=== PATIENT | female | born 1995 | race Caucasian/White ===

== ENCOUNTER 2018-10-24 07:18 | Inpatient (IN) ==
[2018-10-24] MEDS ORDERED: OXYTOCIN 30 UNITS/500 ML BAG IV PRN ×3 (08:32→19:37)
[2018-10-24] MEDS ORDERED: LACTATED RINGER'S 1,000 ML IV PRN ×2 (08:32→16:40)
--- NOTE | 2018-10-24 08:38 | History & Physical Report ---
Date of Service October 24, 2018 Assessment & Plan (1) Post-dates : 23 yo at 41 wks, scheduled IOL VSS Afebrile, GBS negative Cervix unfavorable Plan: admit, monitor, IVF, Cervidil for cervical ripening History of Present Illness Chief Complaint: Induction of labor Primary Care Provider: Josué Moseley DO Patient is a 23 yo at 41 wks, being admitted for IOL for postdates No complaints No ctxs/ LOF/VB +FM Her has been uncomplicated h/o mild asthma/ seasonal Migraines IBS GERD h/o 2 SAB's, on 81 mg Aspirin Allergies Allergy/AdvReac Type Severity Reaction Status Date / Time lactose Allergy Gastrointestinal Verified 10/24/18 08:27 Upset Home Medications Home Medications Medication Instructions Recorded Confirmed Type aspirin [Aspirin Childrens] 81 mg PO DAILY 07/28/18 10/24/18 History vit no.[id number] 1 tab PO DAILY 07/28/18 10/24/18 History [ Vitamin] Patient History Medical History Gastroparesis (Chronic) Asthma allergy induced Surgical History [place] teeth extracted (Resolved) H/O dilation and curettage Family History Other FHx: cancer FHx: heart disease FHx: hypertension Social History Preferred Language: Indonesian Communication Ability: Effective 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 Beliefs That Will Affect Care: None marital status: Current Living Situation: Spouse and Family Feels Safe at Home: Yes Safety Concerns: Feels Safe At This Time Smoking Status: Never smoker Hx Alcohol Use: No Hx Substance Use: No [employer] History No h/o STD's, no GC/ Chlamydia/ HSV Review of Systems All systems reviewed & are unremarkable except as noted in HPI & below Physical Exam Vital Signs (Past 24 Hours): Last Vital Signs Pulse 110 H 10/24/18 07:50 BP 137/81 10/24/18 07:50 Gastrointestinal (Abdomen): Abd: soft, NT, Gravid Monitoring External Monitor 140's with decreased variability, had acceleration and moderate variability after VE
[2018-10-24 08:51] LABS: Hemoglobin 11.5 g/dL (12.0-16.0); Mean Corpuscular Volume 92.4 fL (80-100); Mean Platelet Volume 9.5 fL (7.4-10.4); Platelet Count 374 K/uL (130-400); RDW Standard Deviation 46.8 fL (36.4-46.3); Red Blood Count 3.68 M/uL (4.2-5.4); White Blood Count 15.38 K/uL (4.8-10.8)
[2018-10-24 08:56] LABS: Mean Corpuscular Hgb Conc 33.8 g/dL (32-36)
[2018-10-24] MEDS ORDERED: DINOPROSTONE 10 MG INSERT PV ONE ×2 (09:00→21:01)
[2018-10-24] MEDS: LACTATED RINGER'S 1,000 ML IV SCH ×2 (09:04→15:51)
[2018-10-24] MEDS ORDERED: BUTORPHANOL TARTRATE 2 MG/ML VIAL IV PRN (13:20)
[2018-10-24] MEDS ORDERED: BUTORPHANOL TARTRATE 2 MG/ML VIAL ONE (13:22)
[2018-10-24] MEDS ORDERED: BUPIVACAINE 0.25% 30 ML VIAL ONE (14:52)
[2018-10-24] MEDS ORDERED: ePHEDrine sulfate 50 MG/ML AMP ONE (14:53)
[2018-10-24] MEDS ORDERED: fentaNYL citrate 100 MCG/2 ML VIAL ONE (14:53)
[2018-10-24] MEDS ORDERED: fentaNYL 2MCG/ML ROPIV 1.25MG/ML 100 ML BAG EPI ONE (14:53)
--- NOTE | 2018-10-24 14:57 | Obstetrical Progress Note ---
Date of Service October 24, 2018 Subjective Patient is very painful She received Stadol but did not help for her pain Now No LOF/VB +FM VSS Afebrile VE: 2cm/ 80%/ -3, cervidil is in FHR Categ I [place]: ctxs q 2-7 min Plan epidural for pain Continue to monitor closely Physical Exam Vital Signs (Past 24 Hours): Last Vital Signs Temp 36.9 C 10/24/18 12:05 Pulse 116 H 10/24/18 12:07 Resp 16 10/24/18 12:05 BP 115/66 10/24/18 12:07
--- NOTE | 2018-10-24 16:40 | Obstetrical Progress Note ---
Date of Service October 24, 2018 Subjective Patient is reevalauated She had epidural for pain and feels comfortable now She had low BP's and had FHR decelerations after few ctxs and recovered when BP was normalized SROM at 1615, light meconium? per PAOLA Wiley who removed cervidil then VE: 4/ 70%/ -2, bulging bag, AROM'ed, clear fluid FHR 140-150's no decels Continue to monitor closely Augment with pitocin as needed Physical Exam Vital Signs (Past 24 Hours): Last Vital Signs Temp 36.8 C 10/24/18 15:49 Pulse 115 H 10/24/18 16:32 Resp 18 10/24/18 16:00 BP 105/59 L 10/24/18 16:32 Pulse Ox 98 10/24/18 16:32
[2018-10-24] MEDS ORDERED: CEFAZOLIN 2000MG 2,000 MG/15 ML SYR IV STA (19:09)
[2018-10-24] MEDS ORDERED: ONDANSETRON INJ 2 MG/ML 2 ML VIAL IV PRN (19:31)
[2018-10-24] MEDS ORDERED: ONDANSETRON INJ 2 MG/ML 2 ML VIAL ONE (19:35)
[2018-10-24] MEDS ORDERED: ACETAMINOPHEN 325 MG TAB PO PRN (19:37)
[2018-10-24] MEDS ORDERED: BENZOCAINE 20% AER SPR 82.5 GM CAN EXT PRN (19:37)
[2018-10-24] MEDS ORDERED: SUPERCREAM 0.870% 15 GM JAR EXT PRN (19:37)
[2018-10-24] MEDS ORDERED: BISACODYL 10 MG SUPP PR PRN (19:37)
[2018-10-24] MEDS ORDERED: HYDROCORTISONE ACETATE 25 MG SUPP PR PRN (19:37)
[2018-10-24] MEDS ORDERED: DIPHTHERIA/TETANUS/PERTUSSIS 0.5 ML SYR/VIAL IM ONE (19:37)
[2018-10-24] MEDS ORDERED: LACTATED RINGER'S 1,000 ML IV SCH (19:45)
[2018-10-24] MEDS ORDERED: IBUPROFEN 600 MG TAB PO ONE (19:50)
[2018-10-24] MEDS: IBUPROFEN 600 MG TAB PO PRN (19:52)
--- NOTE | 2018-10-24 21:04 | Obstetrical Progress Note ---
Date of Service October 24, 2018 Subjective Patient is reevaluated She slept after she received Stadol for pain Helped for pain VE: 2/ thick / -5, cervidil is removed Bed side US: Vertex FHR categ I, decreased variability after Stadol Plan give her dinner and then 2nd cervidil for cervical ripening Continue to monitor Physical Exam Vital Signs (Past 24 Hours): Last Vital Signs Temp 37.1 C 10/24/18 17:37 Pulse 118 H 10/24/18 20:47 Resp 20 10/24/18 20:32 BP 122/77 10/24/18 20:47 Pulse Ox 96 10/24/18 19:22
--- NOTE | 2018-10-24 21:27 | Anesthesia Procedure Note ---
Date of Service October 24, 2018 Anesthesia Post Epidural Note Vital Signs Vital Signs: Temp Pulse Resp BP Pulse Ox 37.1 C 118 H 20 119/72 96 10/24/18 17:37 10/24/18 21:17 10/24/18 20:32 10/24/18 21:17 10/24/18 19:22 Pain Intensity Episiotomy/Laceration: Pain Intensity: 1 Notes Mental Status: alert / awake / arousable and participated in evaluation Nausea / Vomiting: adequately controlled Pain: adequately controlled Airway Patency, RR, SpO2: stable & adequate BP & HR: stable & adequate Hydration State: stable & adequate Neuraxial Anesthesia: was administered and sensory block is resolving Anesthetic Complications: no major complications apparent and Pt Satisfied with anesthetic care Epidural: Removed without complications and With tip intact
[2018-10-24] MEDS: OXYCODONE/ACETAMINOPHEN 5mg/325mg TAB PO PRN (22:07)
[2018-10-24] MEDS: DOCUSATE SODIUM 100 MG CAP PO SCH (23:00)
[2018-10-25] MEDS: IBUPROFEN 600 MG TAB PO PRN ×5 (01:56→20:29)
[2018-10-25] MEDS: OXYCODONE/ACETAMINOPHEN 5mg/325mg TAB PO PRN ×2 (04:10→18:31)
[2018-10-25 06:13] LABS: Hematocrit (blood only) 29.7 % (37-47); Hemoglobin 9.8 g/dL (12.0-16.0); Mean Corpuscular Volume 94.9 fL (80-100); Mean Platelet Volume 9.4 fL (7.4-10.4); Platelet Count 360 K/uL (130-400); RDW Coefficient of Variation 14.3 % (11.5-14.5); RDW Standard Deviation 49.2 fL (36.4-46.3); Red Blood Count 3.13 M/uL (4.2-5.4); White Blood Count 22.07 K/uL (4.8-10.8)
--- NOTE | 2018-10-25 07:34 | Obstetrical Progress Note ---
Date of Service October 25, 2018 Physical Exam Vital Signs (Past 24 Hours): Last Vital Signs Temp 37.0 C 10/25/18 03:50 Pulse 104 H 10/25/18 03:50 Resp 16 10/25/18 03:50 BP 107/68 10/25/18 03:50 Pulse Ox 94 10/25/18 03:50 Physical Exam: abdomen soft and non tender vaginal bleeding scant to moderate no calf tenderness ambulating well
[2018-10-25] MEDS: DOCUSATE SODIUM 100 MG CAP PO SCH ×2 (07:41→20:30)
[2018-10-25] MEDS: PRENATAL VITAMIN 1 TAB PO SCH (07:41)
[2018-10-25] MEDS: FERROUS SULFATE 325 MG TAB PO SCH (07:41)
[2018-10-25] MEDS ORDERED: BISACODYL 5 MG TABEC PO SCH (20:00)
[2018-10-26] MEDS: OXYCODONE/ACETAMINOPHEN 5mg/325mg TAB PO PRN (00:14)
[2018-10-26] MEDS: IBUPROFEN 600 MG TAB PO PRN (05:05)
[2018-10-26 07:47] LABS: Hematocrit (blood only) 29.4 % (37-47); Hemoglobin 9.7 g/dL (12.0-16.0)
[2018-10-26] MEDS: DOCUSATE SODIUM 100 MG CAP PO SCH (07:59)
[2018-10-26] MEDS: PRENATAL VITAMIN 1 TAB PO SCH (07:59)
[2018-10-26] MEDS: FERROUS SULFATE 325 MG TAB PO SCH (07:59)
--- NOTE | 2018-10-26 11:37 | Obstetrical Progress Note ---
Date of Service October 26, 2018 Physical Exam Vital Signs (Past 24 Hours): Last Vital Signs Temp 36.9 C 10/26/18 08:05 Pulse 91 H 10/26/18 08:05 Resp 18 10/26/18 08:05 BP 120/84 10/26/18 08:05 Pulse Ox 97 10/26/18 08:05 Physical Exam: abdomen soft and non tender vaginal bleeding scant to moderate no calf tenderness ambulating well
--- NOTE | 2018-10-27 07:58 | Delivery Summary ---
DATE OF OPERATION: 10/24/2018 DETAILS OF DELIVERY: The patient was found to be fully dilated and desired to push. She pushed for about 24 minutes and delivered the head without difficulty. Shoulders were delivered with minimal traction. Baby was handed off to the mother where mouth and nose were suctioned. Cord was clamped x2 and cut at 1-minute delay and then placenta was found to be in the vagina, delivered spontaneous as intact and complete. Uterus was explored, found to be empty. Lower segment was cleared of all clots and debris and IV pitocin infusion was started. The vagina and perineum were checked for lacerations. There was a partial third-degree laceration in the posterior fourchette. It was confirmed with rectal exam. The patient had good sphincter tone, but some of the external sphincter muscle fibers were visible. So those were held with Allis clamps, brought to the midline, and repaired in an end-to-end fashion with [id number] stitches x2 and then rectal exam was repeated. She still had excellent sphincter tone, no sutures were felt. Gloves were changed. Rest of the vaginal mucosa, perineal body muscles, bulbocavernosus muscles were repaired with 2-0 Vicryl in a running locked fashion and then there was oozing at the end of the repair on the right lower vaginal wall. It was also repaired with [id number] stitches x2. Excellent hemostasis was achieved. Rest of the vagina was intact. Mom and baby tolerated the procedure well. Sponge, lap, and needle count was correct x2. Baby was a viable female , Apgars 8/9. EBL was 200 mL. No complications happened and I was present during whole procedure. I attest to the content of the Intraoperative Record and any orders documented therein. Any exceptions are noted below. MTDD
--- OUTSIDE RECORDS SUMMARY | 2018-11-06 10:39 | External Medical Summary | Continuity of Care Document ---
:1995 Author Name Antonio Holly Address Unavailable Unavailable , Care Team Providers Name Role Phone Unavailable Unavailable Unavailable Matteo Palomares M.D. Unavailable [email or web address] [place] KULKARNI Unavailable [email or web address] Bell Unavailable Unavailable Unavailable Unavailable Unavailable Problems Asthma (493.90) (J45.909) Allergic rhinitis (477.9) (J30.9) Iron deficiency anemia (280.9) (D50.9) Raynauds phenomenon (443.0) (I73.00) Abdominal pain, RLQ (right lower quadrant) (789.03) (R10.31) Depression (311) (F32.9) Chronic constipation (564.00) (K59.09) Bulimia nervosa (307.51) (F50.2) Nausea (787.02) (R11.0) Encounter for contraceptive surveillance (V25.40) (Z30.40) Encounter for initial prescription of contraceptives (V25.02 ) (Z30.019) Acne (706.1) (L70.9) Dysmenorrhea (625.3) (N94.6) Allergies and Adverse Reactions No Known Drug Allergies (Allergy) Medications NuvaRing 0.12-0.015 MG/24HR Vaginal Ring ; INSERT VAGINALLY AND KEEP IN FOR 3 WEEKS AND REMOVE FOR 1 WEEK. SHAD Frausto Start: 23-Nov-2014 Quantity: 1 Refills: 1 Ventolin HFA 108 (90 Base) MCG/ACT Inhal ation Aerosol Solution; INHALE 2 PUFFS Every 4 hours Avni Mendoza Start: 21-Sep-2013 Quantity: 1 Refills: 12 Zofran TABS; TAKE TABLET Avni CR Refills: 0 Procedures History of Oral Surgery Tooth Extraction Status: Completed Immunizations Hepatitis B On: 1996 0:00 Hepatitis B On: 1996 0:00 Polio On: 1996 0:00 DT On: 1996 0:00 Polio On: 1996 0:00 DT On: 1996 0:00 Hepatitis B On: 1996 0:00 DT On: 1996 0:00 Polio On: 16-Feb-1997 0:00 DT On: 16-Feb-1997 0:00 MMR On: 16-Feb-1997 0:00 Polio On: 28-Feb-2001 0:00 DT On: 28-Feb-2001 0:00 MMR On: 28-Feb-2001 0:00 Hepatitis A On: 07-Sep-2008 Tdap (Adacel) On: 07-Sep-2008 Hepatitis A On: 30-Jan-2012 16:20 Lot #: [id number], [employer] Menactra Intramuscular Injectable On: 30-Jan-2012 16:20 Lot #: [id number], [employer] Varicella Comments: Varicella Comments:Had Illness Family History Brother Family history of Depression Status: Active Mother Family history of Eating Disorder Status: Active Family history of Denial Of Any Significant Medical History Status: Active Grandmother Family history of Breast Cancer (V16.3) Status: Active Grandfather Family history of Colon Cancer (V16.0) Status: Active Father Family history of Denial Of Any Significant Medical History Status: Active Social History - Smoking Status Never smoker Plan of Treatment Planned Observations Planned Goals not documented Results No Known Results Results not documented
== END 2018-10-26 12:30 | disposition home or self-care (01) | DRG 768 ==
LOC: 4S1 07:30 → 4S2 21:55

== ENCOUNTER 2020-10-14 01:26 | Inpatient (IN) ==
[2020-10-14] MEDS ORDERED: LACTATED RINGER'S 1,000 ML IV PRN (02:05)
[2020-10-14] MEDS ORDERED: ePHEDrine sulfate 50 MG/ML AMP ONE (02:23)
[2020-10-14] MEDS ORDERED: fentaNYL citrate 100 MCG/2 ML VIAL ONE (02:23)
[2020-10-14] MEDS ORDERED: SODIUM CHLORIDE 0.9% INJ 10 ML VIAL ONE (02:23)
[2020-10-14] MEDS ORDERED: BUPIVACAINE 0.25% 30 ML VIAL ONE (02:23)
[2020-10-14] MEDS ORDERED: fentaNYL 2MCG/ML ROPIVACAINE 1.25MG/ML 100 ML BAG EPI ONE (02:24)
[2020-10-14 02:28] LABS: Hematocrit (blood only) 34.3 % (37-47); Hemoglobin 11.4 g/dL (12.0-16.0); Mean Corpuscular Volume 90.3 fL (80-100); Mean Platelet Volume 9.1 fL (7.4-10.4); Platelet Count 298 K/uL (130-400); RDW Coefficient of Variation 14.1 % (11.5-14.5); RDW Standard Deviation 46.2 fL (36.4-46.3); White Blood Count 19.87 K/uL (4.8-10.8)
--- NOTE | 2020-10-14 02:28 | Obstetrical Progress Note ---
Date of Service October 14, 2020 Assessment & Plan Admission and Anticipated Discharge Date Admission Date: October 14, 2020 Subjective Admit Note 25 F P1 031 at 39.1 weeks admitted in active labor. GBS is negative. covid is negative. FHT Cat 1 with regular contractions. Cervix is 6/100/0. Patient requesting epidural. Will admit and anticipate normal delivery. Results & Data ([facility]) Vital Signs (Past 12 Hours) Vital Signs Temp Pulse Resp BP 10/14/20 02:07 36.8 C 18 10/14/20 01:40 112 H 126/71
--- NOTE | 2020-10-14 02:35 | Anesthesiology Consultation ---
Date of Service October 14, 2020 Assessment & Plan (1) Encounter for pre-operative examination: Chart Review Chart Review: Acceptable Risk for Surgery and Patient NOT seen in Pre Admission Testing Consults Requested none History Height/Weight Height: 5 ft 3 in Weight: 62.142 kg Allergies Allergy/AdvReac Type Severity Reaction Status Date / Time lactose AdvReac Mild Gastrointestinal Verified 10/14/20 02:05 Upset Medications Home Medications Medication Instructions Recorded Confirmed Last Taken aspirin 81 mg PO HS 01/11/20 10/14/20 10/13/20 PNV [id number]-ferrous fumarate-FA 1 tab PO DAILY 10/14/20 10/14/20 10/13/20 [] Past Medical History Medical History Asthma allergy induced Gastroparesis Post-dates Past Family History Family History Other FHx: cancer FHx: heart disease FHx: hypertension Past Surgical History Surgical History H/O dilation and curettage [place] teeth extracted Social History Smoking Status: Never smoker Hx Alcohol Use: No Hx Substance Use: No substance use type: does not use Physical Exam Vital Signs Last Vital Signs Temp 36.8 C 10/14/20 02:07 Pulse 117 H 10/14/20 02:33 Resp 18 10/14/20 02:07 BP 126/71 10/14/20 01:40 Pulse Ox 97 10/14/20 02:33 Testing Laboratory Results 10/14/20 02:20
[2020-10-14 02:49] LABS: Mean Corpuscular Hgb Conc 33.2 g/dL (32-36)
[2020-10-14] MEDS ORDERED: LIDOCAINE HCL 1% 20 ML VIAL ONE (02:58)
[2020-10-14] MEDS: OXYTOCIN 30 UNITS/500 ML BAG IV PRN ×2 (03:02→03:37)
--- NOTE | 2020-10-14 03:15 | Delivery Summary ---
Vaginal Delivery Summary Date of Service October 14, 2020 Vaginal Delivery Summary Delivery Note over intact perineum KARINA with delayed cord clamping and Apgars 8/9 weight pending. Cord blood obtained followed by spontaneous delivery of an intact placenta. No tears. EBL 200 ml. Final sponge and instrument count are correct. Bladder emptied with red rubber cath. Mom and baby stable.
[2020-10-14] MEDS ORDERED: DIPHTHERIA/TETANUS/PERTUSSIS 0.5 ML SYR/VIAL IM ONE (03:21)
[2020-10-14] MEDS ORDERED: ACETAMINOPHEN 325 MG TAB PO PRN (03:21)
[2020-10-14] MEDS ORDERED: IBUPROFEN 600 MG TAB PO ONE (03:21)
[2020-10-14] MEDS ORDERED: BENZOCAINE 20% AER SPR 82.5 GM CAN EXT PRN (03:21)
[2020-10-14] MEDS ORDERED: bisacodyL 10 MG SUPP PR PRN (03:21)
[2020-10-14] MEDS ORDERED: OXYTOCIN 30 UNITS/500 ML BAG IV PRN (03:21)
[2020-10-14] MEDS ORDERED: HYDROCORTISONE ACETATE 25 MG SUPP PR PRN (03:21)
[2020-10-14] MEDS ORDERED: LACTATED RINGER'S 1,000 ML IV SCH (03:21)
[2020-10-14] MEDS ORDERED: SUPERCREAM 0.870% 15 GM JAR EXT PRN (03:21)
[2020-10-14] MEDS: DOCUSATE SODIUM 100 MG CAP PO SCH ×2 (08:08→20:08)
[2020-10-14] MEDS: PRENATAL VITAMIN 1 TAB PO SCH (08:09)
[2020-10-14] MEDS: FERROUS SULFATE 325 MG TAB PO SCH (08:09)
[2020-10-14] MEDS ORDERED: NON-FORMULARY MEDICATION (Pnv Cmb#95-Ferrous Fumarate-Fa [Prenatal] 28 mg iron- 800 mcg Ta PO SCH (09:00)
[2020-10-14] MEDS: IBUPROFEN 600 MG TAB PO PRN ×2 (11:56→20:08)
[2020-10-15 06:39] LABS: Hematocrit (blood only) 30.3 % (37-47); Hemoglobin 10.1 g/dL (12.0-16.0); Mean Corpuscular Hemoglobin 30.4 pg (25-34); Mean Corpuscular Hgb Conc 33.3 g/dL (32-36); Mean Corpuscular Volume 91.3 fL (80-100); Mean Platelet Volume 9.1 fL (7.4-10.4); Platelet Count 314 K/uL (130-400); RDW Coefficient of Variation 14.6 % (11.5-14.5); RDW Standard Deviation 49.1 fL (36.4-46.3); Red Blood Count 3.32 M/uL (4.2-5.4); White Blood Count 13.75 K/uL (4.8-10.8)
--- NOTE | 2020-10-15 08:13 | Obstetrical Progress Note ---
Date of Service October 15, 2020 Assessment & Plan Admission and Anticipated Discharge Date Admission Date: October 14, 2020 Subjective Patient is seen and examined. She feels well, no complaints. Desires d/c today Ambulating without dizziness Voiding without difficulty Tolerating regular diet with out N&V Bleeding is minimal No fever/ chills/ CP/ SOB/ N&V/ Leg pain Breast feeding without problems Vital Signs Temp Pulse Resp BP Pulse Ox 10/15/20 03:30 36.4 C L 89 16 102/63 97 10/14/20 23:15 36.5 C 98 H 16 107/67 97 Lab Results 10/14/20 10/14/20 10/15/20 Range/Units 02:02 02:20 06:14 WBC 19.87 H 13.75 H (4.8-10.8) K/uL RBC 3.80 L 3.32 L (4.2-5.4) M/uL Hgb 11.4 L 10.1 L (12.0-16.0) g/dL Hct 34.3 L 30.3 L (37-47) % MCV 90.3 91.3 (80-100) fL MCH 30.0 30.4 (25-34) pg MCHC 33.2 33.3 (32-36) g/dL RDW Std Deviation 46.2 49.1 H (36.4-46.3) fL RDW Coeff of Yuliana 14.1 14.6 H (11.5-14.5) % Plt Count 298 314 (130-400) K/uL MPV 9.1 9.1 (7.4-10.4) fL SARS-CoV-2, RNA, NAAT NEGATIVE (NEGATIVE) PE: General: Alert, orientedx3, NAD Abd: soft, NT, fundus firm, below Umbilicus Perineum intact, Lochia rubra minimal Ext; NT, no edema AP: 25 yo s/p , ppd# 1 VSS Afebrile doing well Continue routine care All questions were answered D/C home , f/u in office Discussed when to call Results & Data ([facility]) Vital Signs (Past 12 Hours) Vital Signs Temp Pulse Resp BP Pulse Ox 10/15/20 03:30 36.4 C L 89 16 102/63 97 10/14/20 23:15 36.5 C 98 H 16 107/67 97
[2020-10-15] MEDS: PRENATAL VITAMIN 1 TAB PO SCH (08:28)
[2020-10-15] MEDS: FERROUS SULFATE 325 MG TAB PO SCH (08:28)
[2020-10-15] MEDS: DOCUSATE SODIUM 100 MG CAP PO SCH (08:28)
[2020-10-15] MEDS: IBUPROFEN 600 MG TAB PO PRN (08:28)
[2020-10-15] MEDS ORDERED: bisacodyL 5 MG TABEC PO SCH (20:00)
== END 2020-10-15 14:15 | disposition home or self-care (01) | DRG 807 ==
LOC: OPB 01:26 → 4S1 01:29 → 4S2 06:00

== ENCOUNTER 2023-05-03 23:32 | Inpatient (IN) ==
[2023-05-03] MEDS ORDERED: SODIUM CHLORIDE 0.9% 1,000 ML IV SCH (23:45)
--- NOTE | 2023-05-03 23:46 | Emergency Department Note ---
Impression & Plan Tachycardia, Bronchitis, ED Provider Note CHIEF COMPLAINT: Nausea, dizziness, shakiness HISTORY OF PRESENTING ILLNESS: This (4 miscarriages) 24-week 28-year-old female patient presents to the emergency department for evaluation of nausea, dizziness, and shakiness. The patient states that she was laying in bed tonight around 10 pm and was getting flushing to her head and face and her heart would race along with it. She almost felt like she was upside down. She also had nausea and shaking. She felt faint and like she was going to pass out even while laying down. However, she did not pass out. The patient feels like her symptoms have improved slightly, but her face still feels hot, she still feels a little dizzy/woozy, and her heart still seems to be fast at times. Denies chest pain or SOB currently, but had some mild SOB when her heart felt like it was racing. Denies abdominal pain or vomiting. Denies urinary symptoms or changes in her BMs. Denies fevers, cough, or URI symptoms. However, her son was sick last week. Denies any history of heart problems. The patient denies recent long car or plane rides or recent injury/trauma/surgery. Denies any personal or family history of blood clots or bleeding disorders. Denies any hemoptysis. Denies leg or calf pain/swelling. Denies any vaginal bleeding or pelvic pain. The baby has been moving normally. REVIEW OF SYSTEMS: See HPI for pertinent positives and pertinent negatives. ALLERGIES: Lactose MEDICATIONS: vitamin, 81 mg ASA PAST MEDICAL HISTORY: Denies significant past medical or surgical history PHYSICAL EXAM: VITALS: Vitals are noted on the nurse's note and reviewed by myself. GENERAL: Non toxic, no acute distress, non-diaphoretic. SKIN: Capillary refill <2 sec. EYES: PERRLA. EOMI. Conjunctivae without injection, sclerae without icterus. NOSE: Patent without discharge. MOUTH: Mucous membranes moist. Uvula midline. Airway patent. NECK: Supple without nuchal rigidity. HEART: Regular rate and rhythm without murmurs gallops or rubs. LUNGS: Clear to auscultation bilaterally without wheezes, rales or rhonchi. No retractions or accessory muscle use. ABDOMEN: Positive bowel sounds x 4. Gravid, soft, nontender. No masses or organomegaly. Friend sign negative. No guarding or rebound tenderness. No focal RLQ or LLQ tenderness. MUSCULOSKELETAL: No gross musculoskeletal defects. Bilateral calves are nontender to palpation. Negative Homans' sign. Peripheral pulses 2+ and equal in the bilateral upper and lower extremities. NEURO: Patient was alert and oriented. Normal mental status exam. No focal neurological deficits. DIFFERENTIAL DIAGNOSIS: Differential diagnosis includes benign positional vertigo, dehydration, hypovolemia, anemia, tumor, infection, hypoglycemia, electrolyte abnormalities, [place], PE, pneumonia, COVID, other cardiac sources, intracerebral event, toxicologic, neurologic, as well as other pathologies. ED COURSE AND MEDICAL DECISION MAKING: MONITOR: Continuous hospital monitor: Order was placed for continuous hospital monitor. Patient was placed on the hospital monitor and continuous pulse ox. Patient was noted to be in sinus tachycardia at 122 bpm per my interpretation. The patient's heart rate ranged from 110's up to 150s, but typically stayed in the 120s while in the emergency department. heart tones were 146. EKG: EKG was interpreted by myself as sinus tachycardia at 117 bpm with no acute ST or T wave changes. MEDICATIONS GIVEN: A total of 2 L normal saline solution bolus, Zofran 4 mg IV, Benadryl 25 mg IV, Rocephin 2 g IV, and Zithromax 500 mg IV. INTERPRETATION OF LABS: I interpreted the labs with full lab results as below in the lab section of this note. White blood cell count is elevated at 15.52. Hemoglobin normal at 12.2. Platelet count normal. Coags were normal. Potassium low at 3.3. Glucose elevated at 127. CMP otherwise normal. Lipase normal. CRP elevated at 1.24. TSH normal. High-sensitivity troponin normal. Lactate and procalcitonin were normal. Magnesium normal. Urinalysis normal. COVID-negative. Respiratory bio fire positive for rhinovirus/enterovirus. Blood cultures are still pending. INTERPRETATION OF IMAGING: Chest x-ray per my interpretation without acute cardiopulmonary abnormality. Radiology report is still pending. CT scan of the head and CTA of the chest were interpreted by myself and read by radiology as per the imaging section of this note. CTA of the head was negative for acute intracranial abnormality. CTA of the chest showed no evidence for PE, but did s how findings concerning for bronchitis with pneumonitis which may be infectious or inflammatory. There are also prominent mediastinal and axillary lymph nodes. Per AUA Guidelines: "Women in the second and third trimesters are candidates for low-dose CT if ultrasonography is not diagnostic. An [place] [employer] (ACOG) committee on obstetric practice endorses the utilization of low-dose CT when clinically indicated and notes that an exposure of less than 5 rads, a threshold well above the average for a low-dose CT, is not associated with the development of anomalies or loss." Angelic WM, Devora BROWN, Cande J et al: Low-dose computed tomography for the evaluation of flank pain in the population. Journal of Endourology/Endourological Society 2007; 21: 1255. [employer]: [employer]: guidelines for diagnostic imaging during . ACOG Committee Opinion No 299. Obstet Gynecol 2004; 104: 647 CONSULTATIONS: On-call hospitalist MDM SUMMARY: I examined the patient. An IV lock was placed and labs were drawn. The patient heart rate ranged from the 110s up to the 150s during her stay, but typically ranged in the 120s. No improvement of her tachycardia after 2 L of IV fluids and above medications. Laboratory studies without acute abnormalities causing the patient's symptoms. Chest x-ray showed no acute abnormalities per my interpretation. I had a meaningful discussion about this patient with Dr. Ramires who agrees with my assessment and the treatment plan. Due to the patient's persisting tachycardia along with her symptoms, there is concern for possible PE or other acute intracranial or cardiopulmonary etiology. I had a conversation with the patient about the purpose, risk, and benefits of CT scans during . I discussed that the benefit outweighs the risks at this time. I also discussed the AUA guidelines in regards to CT scans and as above. The patient is agreeable to CT scans at this time. The CTA of the chest showed findings concerning for bronchitis with pneumonitis. With the patient's tachycardia, her elevated white blood cell count, and CT scan findin gs, we were concerned for pneumonia. Blood cultures were obtained. The patient was given Rocephin and Zithromax. Lactate was normal. The patient's respiratory bio fire was also positive for rhinovirus/enterovirus. The patient still had continued tachycardia and did not feel at baseline. Therefore, we felt the patient required admission for further evaluation and treatment. I spoke with the on-call hospitalist who agreed to admit the patient for further management. Please refer to their dictation for further details. The patient's care was transferred in stable condition. DIAGNOSIS: Tachycardia Bronchitis with pneumonitis versus pneumonia Past Med/Surg History Medical History Asthma allergy induced Encounter for pre-operative examination History of COVID-19 07/2020- mild cold symtoms, cough, runny nose, fatigue; 07/2021- mild cold symptoms, no hopitalizations or no current isssues Surgical History H/O dilation and curettage History of esophagogastroduodenoscopy (EGD) S/P colonoscopy Terry teeth extracted Family History Other FHx: cancer FHx: heart disease FHx: hypertension Social History Smoking Status: Never smoker Second Hand Exposure: No; Do You Dip or Chew Tobacco: No; Hx Alcohol Use: No Hx Substance Use: No Preferred Language: British Communication Ability: 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 Beliefs That Will Affect Care: None marital status: Current Living Situation: Spouse Feels Safe at Home: Yes Assistive Devices: Contacts and Glasses Allergies Allergies Allergy/AdvReac Type Severity Reaction Status Date / Time lactose AdvReac Mild Gastrointestinal Verified 02/01/22 09:10 Upset Home Meds Previous Rx's Medication Instructions Recorded ondansetron 4 mg disintegrating 4 mg PO Q6H PRN nausea and 12/20/21 tablet vomiting #12 tabs ibuprofen 600 mg tablet 600 mg PO Q6H PRN pain #30 tabs 02/01/22 Results & Data (ED) Vital Signs Vital Signs - 24 hr 05/03/23 23:35 05/03/23 23:52 05/03/23 23:57 Temperature 36.6 C Temperature Source Oral Pulse Rate 128 H 125 H Pulse Rate [Finger] 120 H Pulse Rhythm Regular Pulse Rhythm [Finger] Regular Pulse Strength [Finger] Normal Respiratory Rate 18 20 20 Respiratory Effort / Characteristics Non-Labored Spontaneous Non-Labored Spontaneous Respiratory Depth Normal Normal Respiratory Pattern Regular Blood Pressure 141/84 H Blood Pressure [Right Arm] 127/95 Blood Pressure Mean 103 Blood Pressure Mean [Right Arm] 105 Blood Pressure Position [Right Arm] Lying Pulse Oximetry 99 97 98 Oxygen Delivery Method Room Air Room Air Room Air Sepsis Recent Fever Within 48 Hours No Sepsis New/Unexplained Change in Mental Status No Sepsis Action Taken by Nursing No Action Required 05/04/23 00:00 05/04/23 01:00 05/04/23 02:00 Temperature Temperature Source Pulse Rate 120 H 115 H 123 H Pulse Rate [Finger] Pulse Rhythm Pulse Rhythm [Finger] Pulse Strength [Finger] Respiratory Rate 18 20 20 Respiratory Effort / Characteristics Respiratory Depth Respiratory Pattern Blood Pressure 131/81 129/90 131/85 Blood Pressure [Right Arm] Blood Pressure Mean 97 103 100 Blood Pressure Mean [Right Arm] Blood Pressure Position [Right Arm] Pulse Oximetry 97 99 98 Oxygen Delivery Method Sepsis Recent Fever Within 48 Hours Sepsis New/Unexplained Change in Mental Status Sepsis Action Taken by Nursing 05/04/23 04:00 05/04/23 00:15 05/04/23 04:37 Temperature Temperature Source Pulse Rate 125 H 157 H 115 H Pulse Rate [Finger] Pulse Rhythm Pulse Rhythm [Finger] Pulse Strength [Finger] Respiratory Rate Respiratory Effort / Characteristics Respiratory Depth Respiratory Pattern Blood Pressure 122/80 Blood Pressure [Right Arm] Blood Pressure Mean 94 Blood Pressure Mean [Right Arm] Blood Pressure Position [Right Arm] Pulse Oximetry 97 Oxygen Delivery Method Sepsis Recent Fever Within 48 Hours Sepsis New/Unexplained Change in Mental Status Sepsis Action Taken by Nursing 05/04/23 05:00 05/04/23 07:19 Temperature Temperature Source Pulse Rate 124 H Pulse Rate [Finger] Pulse Rhythm Pulse Rhythm [Finger] Pulse Strength [Finger] Respiratory Rate 19 Respiratory Effort / Characteristics Respiratory Depth Respiratory Pattern Blood Pressure 120/83 Blood Pressure [Right Arm] 121/78 Blood Pressure Mean 95 Blood Pressure Mean [Right Arm] 92 Blood Pressure Position [Right Arm] Pulse Oximetry 95 96 Oxygen Delivery Method Room Air Sepsis Recent Fever Within 48 Hours Sepsis New/Unexplained Change in Mental Status Sepsis Action Taken by Nursing Laboratory Data 05/04/23 00:30 05/04/23 00:30 Lab Results 05/04/23 05/04/23 05/04/23 Range/Units 00:30 00:30 00:30 WBC 15.52 H (4.8-10.8) K/ul RBC 4.00 L (4.20-5.40) M/uL Hgb 12.2 (12.0-16.0) g/dl Hct 36.3 L (37.0-47.0) % MCV 90.8 (80.0-100.0) fL MCH 30.5 (25.0-34.0) pg MCHC 33.6 (32.0-36.0) g/dL RDW Std Deviation 42.1 (36.4-46.3) fL RDW Coeff of Yuliana 12.7 (11.5-14.5) % Plt Count 324 (130-400) K/uL MPV 9.3 L (9.4-12.4) fL Immature Gran % (Auto) 1.9 % Neut % (Auto) 67.3 % Lymph % (Auto) 21.8 % Rhea % (Auto) 6.0 % Eos % (Auto) 2.6 % Baso % (Auto) 0.4 % Neut # (Auto) 10.45 H (1.40-6.50) K/uL Lymph # (Auto) 3.38 (1.20-3.40) K/uL Rhea # (Auto) 0.93 H (0.11-0.59) K/uL Eos # (Auto) 0.41 (0.00-0.50) K/uL Baso # (Auto) 0.06 (0.00-0.20) K/uL Immature Gran # (Auto) 0.29 H (0.01-0.20) K/uL PT 9.6 (9.0-12.0) Seconds INR 0.9 (0.9-1.1) APTT 25.3 (21.0-31.0) Seconds PTT Ratio 0.9 Sodium 137 (136-145) mmol/L Potassium 3.3 L (3.5-5.1) mmol/L Chloride 105 (98-107) mmol/L Carbon Dioxide 22 (21-32) mmol/L Anion Gap 10 (3-11) BUN 8 (6-23) mg/dl Creatinine 0.41 L (0.6-1.2) mg/dl Est Cr Clr Drug Dosing 192.9 ml/min Est GFR ( Amer) > 150.0 ml/min Est GFR (Non-Af Amer) 141.6 ml/min BUN/Creatinine Ratio 19.5 (10-20) Glucose 127 H (70-99(Fasting)) mg/dl Lactate (0.4-2.0) mmol/L Calcium 10.1 (8.6-10.3) mg/dl Magnesium 1.8 (1.7-2.4) mg/dl Total Bilirubin 0.5 (0.2-1.0) mg/dl AST 12 L (13-39) U/L ALT 9 (7-52) U/L Alkaline Phosphatase 98 (34-104) U/L Troponin I High Sens 6.0 (0-14) pg/ml C-Reactive Protein 1.24 H (0-0.5) mg/dl Total Protein 8.1 (6.0-8.3) gm/dl Albumin 4.0 (3.4-5.0) gm/dl Globulin 4.1 H (2.5-4.0) gm/dl Albumin/Globulin Ratio 1.0 (0.9-2) Lipase 50 (11-82) U/L Procalcitonin (0-0.5) ng/ml TSH 0.782 (0.300-4.500) uIu/ml Urine Color Urine Appearance (Clear) Urine pH (4.5-7.5) Ur Specific Chaplin (1.000-1.030) Urine Protein (Negative) Urine Glucose (UA) (Negative) Urine Ketones (Negative) Urine Blood (Negative) Urine Nitrite (Negative) Urine Bilirubin (Negative) Urine Urobilinogen (Negative) Ur Leukocyte Esterase (Negative) Adenovirus (PCR) (NotDetected) B. pertussis DNA (PCR) (NotDetected) B.parapertussis DNA PCR (NotDetected) C. pneumoniae DNA (PCR) (NotDetected) Coronavirus OC43 (PCR) (NotDetected) Coronavirus HKU1 (PCR) (NotDetected) Coronavirus 229E (PCR) (NotDetected) SARS-CoV-2 (PCR) (NotDetected) Coronavirus NL63 (PCR) (NotDetected) Human Metapneumovir PCR (NotDetected) Influenza Type A (PCR) (NotDetected) Influenza Type B (PCR) (NotDetected) M. pneumoniae (PCR) (NotDetected) Parainfluenza 1 (PCR) (NotDetected) Parainfluenza 2 (PCR) (NotDetected) Parainfluenza 3 (PCR) (NotDetected) Parainfluenza 4 (PCR) (NotDetected) RSV (PCR) (NotDetected) Entero/Rhino (PCR) (NotDetected) SARS-CoV-2, RNA, NAAT (NEGATIVE) 05/04/23 05/04/23 05/04/23 Range/Units 00:30 00:30 00:50 WBC (4.8-10.8) K/ul RBC (4.20-5.40) M/uL Hgb (12.0-16.0) g/dl Hct (37.0-47.0) % MCV (80.0-100.0) fL MCH (25.0-34.0) pg MCHC (32.0-36.0) g/dL RDW Std Deviation (36.4-46.3) fL RDW Coeff of Yuliana (11.5-14.5) % Plt Count (130-400) K/uL MPV (9.4-12.4) fL Immature Gran % (Auto) % Neut % (Auto) % Lymph % (Auto) % Rhea % (Auto) % Eos % (Auto) % Baso % (Auto) % Neut # (Auto) (1.40-6.50) K/uL Lymph # (Auto) (1.20-3.40) K/uL Rhea # (Auto) (0.11-0.59) K/uL Eos # (Auto) (0.00-0.50) K/uL Baso # (Auto) (0.00-0.20) K/uL Immature Gran # (Auto) (0.01-0.20) K/uL PT (9.0-12.0) Seconds INR (0.9-1.1) APTT (21.0-31.0) Seconds PTT Ratio Sodium (136-145) mmol/L Potassium (3.5-5.1) mmol/L Chloride (98-107) mmol/L Carbon Dioxide (21-32) mmol/L Anion Gap (3-11) BUN (6-23) mg/dl Creatinine (0.6-1.2) mg/dl Est Cr Clr Drug Dosing ml/min Est GFR ( Amer) ml/min Est GFR (Non-Af Amer) ml/min BUN/Creatinine Ratio (10-20) Glucose (70-99(Fasting)) mg/dl Lactate (0.4-2.0) mmol/L Calcium (8.6-10.3) mg/dl Magnesium (1.7-2.4) mg/dl Total Bilirubin (0.2-1.0) mg/dl AST (13-39) U/L ALT (7-52) U/L Alkaline Phosphatase (34-104) U/L Troponin I High Sens (0-14) pg/ml C-Reactive Protein (0-0.5) mg/dl Total Protein (6.0-8.3) gm/dl Albumin (3.4-5.0) gm/dl Globulin (2.5-4.0) gm/dl Albumin/Globulin Ratio (0.9-2) Lipase (11-82) U/L Procalcitonin < 0.05 (0-0.5) ng/ml TSH (0.300-4.500) uIu/ml Urine Color Yellow Urine Appearance Clear (Clear) Urine pH 7.0 (4.5-7.5) Ur Specific Chaplin 1.003 (1.000-1.030) Urine Protein Negative (Negative) Urine Glucose (UA) Negative (Negative) Urine Ketones Negative (Negative) Urine Blood Negative (Negative) Urine Nitrite Negative (Negative) Urine Bilirubin Negative (Negative) Urine Urobilinogen Negative (Negative) Ur Leukocyte Esterase Negative (Negative) Adenovirus (PCR) (NotDetected) B. pertussis DNA (PCR) (NotDetected) B.parapertussis DNA PCR (NotDetected) C. pneumoniae DNA (PCR) (NotDetected) Coronavirus OC43 (PCR) (NotDetected) Coronavirus HKU1 (PCR) (NotDetected) Coronavirus 229E (PCR) (NotDetected) SARS-CoV-2 (PCR) (NotDetected) Coronavirus NL63 (PCR) (NotDetected) Human Metapneumovir PCR (NotDetected) Influenza Type A (PCR) (NotDetected) Influenza Type B (PCR) (NotDetected) M. pneumoniae (PCR) (NotDetected) Parainfluenza 1 (PCR) (NotDetected) Parainfluenza 2 (PCR) (NotDetected) Parainfluenza 3 (PCR) (NotDetected) Parainfluenza 4 (PCR) (NotDetected) RSV (PCR) (NotDetected) Entero/Rhino (PCR) (NotDetected) SARS-CoV-2, RNA, NAAT NEGATIVE (NEGATIVE) 05/04/23 05/04/23 Range/Units 05:30 05:50 WBC (4.8-10.8) K/ul RBC (4.20-5.40) M/uL Hgb (12.0-16.0) g/dl Hct (37.0-47.0) % MCV (80.0-100.0) fL MCH (25.0-34.0) pg MCHC (32.0-36.0) g/dL RDW Std Deviation (36.4-46.3) fL RDW Coeff of Yuliana (11.5-14.5) % Plt Count (130-400) K/uL MPV (9.4-12.4) fL Immature Gran % (Auto) % Neut % (Auto) % Lymph % (Auto) % Rhea % (Auto) % Eos % (Auto) % Baso % (Auto) % Neut # (Auto) (1.40-6.50) K/uL Lymph # (Auto) (1.20-3.40) K/uL Rhea # (Auto) (0.11-0.59) K/uL Eos # (Auto) (0.00-0.50) K/uL Baso # (Auto) (0.00-0.20) K/uL Immature Gran # (Auto) (0.01-0.20) K/uL PT (9.0-12.0) Seconds INR (0.9-1.1) APTT (21.0-31.0) Seconds PTT Ratio Sodium (136-145) mmol/L Potassium (3.5-5.1) mmol/L Chloride (98-107) mmol/L Carbon Dioxide (21-32) mmol/L Anion Gap (3-11) BUN (6-23) mg/dl Creatinine (0.6-1.2) mg/dl Est Cr Clr Drug Dosing ml/min Est GFR ( Amer) ml/min Est GFR (Non-Af Amer) ml/min BUN/Creatinine Ratio (10-20) Glucose (70-99(Fasting)) mg/dl Lactate 1.7 (0.4-2.0) mmol/L Calcium (8.6-10.3) mg/dl Magnesium (1.7-2.4) mg/dl Total Bilirubin (0.2-1.0) mg/dl AST (13-39) U/L ALT (7-52) U/L Alkaline Phosphatase (34-104) U/L Troponin I High Sens (0-14) pg/ml C-Reactive Protein (0-0.5) mg/dl Total Protein (6.0-8.3) gm/dl Albumin (3.4-5.0) gm/dl Globulin (2.5-4.0) gm/dl Albumin/Globulin Ratio (0.9-2) Lipase (11-82) U/L Procalcitonin (0-0.5) ng/ml TSH (0.300-4.500) uIu/ml Urine Color Urine Appearance (Clear) Urine pH (4.5-7.5) Ur Specific Chaplin (1.000-1.030) Urine Protein (Negative) Urine Glucose (UA) (Negative) Urine Ketones (Negative) Urine Blood (Negative) Urine Nitrite (Negative) Urine Bilirubin (Negative) Urine Urobilinogen (Negative) Ur Leukocyte Esterase (Negative) Adenovirus (PCR) Not Detected (NotDetected) B. pertussis DNA (PCR) Not Detected (NotDetected) B.parapertussis DNA PCR Not Detected (NotDetected) C. pneumoniae DNA (PCR) Not Detected (NotDetected) Coronavirus OC43 (PCR) Not Detected (NotDetected) Coronavirus HKU1 (PCR) Not Detected (NotDetected) Coronavirus 229E (PCR) Not Detected (NotDetected) SARS-CoV-2 (PCR) Not Detected (NotDetected) Coronavirus NL63 (PCR) Not Detected (NotDetected) Human Metapneumovir PCR Not Detected (NotDetected) Influenza Type A (PCR) Not Detected (NotDetected) Influenza Type B (PCR) Not Detected (NotDetected) M. pneumoniae (PCR) Not Detected (NotDetected) Parainfluenza 1 (PCR) Not Detected (NotDetected) Parainfluenza 2 (PCR) Not Detected (NotDetected) Parainfluenza 3 (PCR) Not Detected (NotDetected) Parainfluenza 4 (PCR) Not Detected (NotDetected) RSV (PCR) Not Detected (NotDetected) Entero/Rhino (PCR) DETECTED A* (NotDetected) SARS-CoV-2, RNA, NAAT (NEGATIVE) Administered Medications Discontinued Medications Diphenhydramine HCl (Diphenhydramine 50 Mg/Ml Vial) 25 mg IV NOW STA Stop: 05/04/23 00:20 Last Admin: 05/04/23 00:38 Dose: 25 mg Documented By: ALFONSO Sodium Chloride (Nss) 1,000 mls @ 999 mls/hr IV .Q1H1M CHANDRIKA Stop: 05/04/23 00:45 Last Infusion: 05/04/23 02:59 Dose: 0 mls/hr Documented By: Admin: 05/04/23 00:48 Dose: 999 mls/hr Documented By: ALFONSO Ceftriaxone Sodium (Rocephin) 2,000 mg in 50 mls @ 100 mls/hr IV NOW STA Stop: 05/04/23 05:06 Last Infusion: 05/04/23 06:20 Dose: 0 mls/hr Documented By: Admin: 05/04/23 05:21 Dose: 100 mls/hr Documented By: ALFONSO Azithromycin 500 mg/ Dextrose 255 mls @ 125 mls/hr IV ONE ONE Stop: 05/04/23 06:39 Last Admin: 05/04/23 06:15 Dose: 125 mls/hr Documented By: ALFONSO Sodium Chloride (Nss) 1,000 mls @ 999 mls/hr IV .Q1H1M ONE Stop: 05/04/23 05:38 Last Infusion: 05/04/23 07:17 Dose: 0 mls/hr Documented By: Admin: 05/04/23 06:16 Dose: 999 mls/hr Documented By: ALFONSO Ioversol (Optiray 320 500ml) 114 ml IV ONCE ONE Stop: 05/04/23 02:39 Last Admin: 05/04/23 02:38 Dose: 114 ml Documented By: LUCY Ondansetron HCl (Ondansetron Inj 2 Mg/Ml 2 Ml Vial) 4 mg IV NOW STA Stop: 05/03/23 23:57 Last Admin: 05/04/23 00:38 Dose: 4 mg Documented By: ALFONSO Potassium Chloride (Potassium Chloride Crtab 20 Meq Tabcr) 40 meq PO NOW STA Stop: 05/04/23 05:07 Last Admin: 05/04/23 06:15 Dose: 40 meq Documented By: ALFONSO Imaging Data Radiologist's Impression: Chest CTA 05/04/23 02:06 Exam(s): CTA CHEST IV Amt: 114 cc's optiray 320 EXAM: CT Angiography Chest With Intravenous Contrast CLINICAL HISTORY: Reason for exam: PE - 24 weeks Preg. TECHNIQUE: Axial computed tomographic angiography images of the chest with intravenous contrast. CTDI is 31.35 mGy and DLP is 525.21 mGy-cm. Automated exposure control was utilized for the study. A dose lowering technique was utilized adhering to the principles of ALARA. MIP reconstructed images were created and reviewed. COMPARISON: No relevant prior studies available. FINDINGS: Pulmonary arteries: Unremarkable. No pulmonary embolism. Aorta: No acute findings. No thoracic aortic aneurysm. Lungs: Mild to moderate peribronchial thickening of the central and lower lobe bronchi. Pneumonitis in the lower lobes. No mass. No consolidation. Pleural space: Unremarkable. No significant effusion. No pneumothorax. Heart: Unremarkable. No cardiomegaly. No significant pericardial effusion. No evidence of RV dysfunction. Bones/joints: No acute fracture. No dislocation. Soft tissues: Unremarkable. Lymph nodes: Prominent mediastinal and axillary lymph nodes. IMPRESSION: No evidence of pulmonary artery. Findings concerning for bronchitis with pneumonitis, which may be infectious or inflammatory etiologies. Prominent mediastinal and axillary lymph nodes. Electronically signed by: Kaye Grace MD 05/04/23 04:[address] 05/04/23 02:06 Exam(s): CT HEAD Without Contrast EXAM: CT Head Without Intravenous Contrast CLINICAL HISTORY: Reason for exam: Tachycardia, headache, pre-syncope - 24 wks Preg. TECHNIQUE: Axial computed tomography images of the head/brain without intravenous contrast. CTDI is 39.03 mGy and DLP is 624.41 mGy-cm. Automated exposure control was utilized for the study. A dose lowering technique was utilized adhering to the principles of ALARA. COMPARISON: No relevant prior studies available. FINDINGS: Brain: Unremarkable. No hemorrhage. No significant white matter disease. No edema. Ventricles: Unremarkable. No ventriculomegaly. Bones/joints: Unremarkable. No acute fracture. Soft tissues: Unremarkable. Sinuses: Unremarkable as visualized. No acute sinusitis. Mastoid air cells: Unremarkable as visualized. No mastoid effusion. IMPRESSION: No evidence of acute intracranial pathology. Electronically signed by: Kaye Grace MD 05/04/23 05:53 AM Discharge Plan Visit Data Chief Complaint: Syncope (Near Syncope) Stated Complaint: 24 WKS, NAUSEA, DIZZY, SHAKY ED Provider: Chato Ramires ED Midlevel Provider: Lorraine Rust Discharge Problem: Tachycardia, Bronchitis, Patient Disposition: Admitted As Inpatient Condition: Good Forms Stand Alone Forms: [facility] Prescriptions Prescriptions: No Action ibuprofen 600 mg tablet 600 mg PO Q6H PRN (Reason: pain) Qty: 30 2RF ondansetron 4 mg tablet,disintegrating 4 mg PO Q6H PRN (Reason: nausea and vomiting) Qty: 12 0RF Referrals Referrals: Melody Fry DO [Primary Care Provider] - Qualifiers: Weeks of gestation: 24 weeks Qualified Code(s): Z3A.24 - 24 weeks gestation of
[2023-05-03] MEDS ORDERED: ONDANSETRON INJ 2 MG/ML 2 ML VIAL IV STA (23:56)
[2023-05-04] MEDS ORDERED: diphenhydrAMINE 50 MG/ML VIAL IV STA (00:19)
[2023-05-04 01:02] LABS: Basophils # (auto) 0.06 K/uL (0.00-0.20); Basophils % (auto) 0.4 %; Eosinophils # (auto) 0.41 K/uL (0.00-0.50); Eosinophils % (auto) 2.6 %; Hematocrit (blood only) 36.3 % (37.0-47.0); Hemoglobin 12.2 g/dl (12.0-16.0); Immature Granulocytes # (auto) 0.29 K/uL (0.01-0.20); Immature Granulocytes % (auto) 1.9 %; Lymphocytes # (auto) 3.38 K/uL (1.20-3.40); Lymphocytes % (auto) 21.8 %; Mean Corpuscular Hemoglobin 30.5 pg (25.0-34.0); Mean Corpuscular Hgb Conc 33.6 g/dL (32.0-36.0); Mean Corpuscular Volume 90.8 fL (80.0-100.0); Mean Platelet Volume 9.3 fL (9.4-12.4); Monocytes # (auto) 0.93 K/uL (0.11-0.59); Neutrophils # (auto) 10.45 K/uL (1.40-6.50); Neutrophils % (auto) 67.3 %; Platelet Count 324 K/uL (130-400); RDW Coefficient of Variation 12.7 % (11.5-14.5); RDW Standard Deviation 42.1 fL (36.4-46.3); White Blood Count 15.52 K/ul (4.8-10.8)
[2023-05-04 01:19] LABS: Alanine Aminotransferase 9 U/L (7-52); Alkaline Phosphatase 98 U/L (34-104); Anion Gap 10 (3-11); Aspartate Aminotransferase 12 U/L (13-39); BUN Creatinine Ratio 19.5 (10-20); Bilirubin,Total 0.5 mg/dl (0.2-1.0); Blood Urea Nitrogen 8 mg/dl (6-23); C Reactive Protein 1.24 mg/dl (0-0.5); Calcium 10.1 mg/dl (8.6-10.3); Carbon Dioxide 22 mmol/L (21-32); Chloride 105 mmol/L (98-107); Creatinine Clr Calc Pharmacy 192.9 ml/min; Est GFR (African American) > 150.0 ml/min; Est GFR (Non-African American) 141.6 ml/min; Globulin 4.1 gm/dl (2.5-4.0); Glucose 127 mg/dl (70-99(Fasting)); Lipase 50 U/L (11-82); Magnesium 1.8 mg/dl (1.7-2.4); Potassium 3.3 mmol/L (3.5-5.1); Sodium 137 mmol/L (136-145); Total Protein 8.1 gm/dl (6.0-8.3)
[2023-05-04 01:30] LABS: Appearance Urine Clear (Clear); Bilirubin Urine Negative (Negative); Blood Urine Negative (Negative); Color Urine Yellow; Glucose Urine UA Negative (Negative); Ketones Urine Negative (Negative); Leukocyte Esterase Urine Negative (Negative); Nitrite Urine Negative (Negative); Protein Urine Negative (Negative); Specific Gravity Urine 1.003 (1.000-1.030); Urobilinogen Urine Negative (Negative)
[2023-05-04 01:32] LABS: INR 0.9 (0.9-1.1); Partial Thromboplastin Ratio 0.9; Partial Thromboplastin Time 25.3 Seconds (21.0-31.0); Prothrombin Time 9.6 Seconds (9.0-12.0)
[2023-05-04 01:33] LABS: Thyroid Stimulating Hormone 0.782 uIu/ml (0.300-4.500)
[2023-05-04] MEDS ORDERED: OPTIRAY 320 500ml IV ONE (02:38)
--- NOTE | 2023-05-04 04:30 | CT Scan Report ---
Exam(s): CTA CHEST IV Amt: 114 cc's optiray 320 EXAM: CT Angiography Chest With Intravenous Contrast CLINICAL HISTORY: Reason for exam: PE - 24 weeks Preg. TECHNIQUE: Axial computed tomographic angiography images of the chest with intravenous contrast. CTDI is 31.35 mGy and DLP is 525.21 mGy-cm. Automated exposure control was utilized for the study. A dose lowering technique was utilized adhering to the principles of ALARA. MIP reconstructed images were created and reviewed. COMPARISON: No relevant prior studies available. FINDINGS: Pulmonary arteries: Unremarkable. No pulmonary embolism. Aorta: No acute findings. No thoracic aortic aneurysm. Lungs: Mild to moderate peribronchial thickening of the central and lower lobe bronchi. Pneumonitis in the lower lobes. No mass. No consolidation. Pleural space: Unremarkable. No significant effusion. No pneumothorax. Heart: Unremarkable. No cardiomegaly. No significant pericardial effusion. No evidence of RV dysfunction. Bones/joints: No acute fracture. No dislocation. Soft tissues: Unremarkable. Lymph nodes: Prominent mediastinal and axillary lymph nodes. IMPRESSION: No evidence of pulmonary artery. Findings concerning for bronchitis with pneumonitis, which may be infectious or inflammatory etiologies. Prominent mediastinal and axillary lymph nodes. Electronically signed by: Kaye Grace MD 05/04/23 04:29 AM
[2023-05-04] MEDS ORDERED: AZITHROMYCIN 500 MG in DEXTROSE 5% 250 ML IV ONE (04:37)
[2023-05-04] MEDS ORDERED: cefTRIAXone SODIUM 2,000 MG/50 ML BAG IV STA (04:37)
[2023-05-04] MEDS ORDERED: SODIUM CHLORIDE 0.9% 1,000 ML IV ONE (04:38)
[2023-05-04] MEDS ORDERED: POTASSIUM CHLORIDE CRTAB 20 MEQ TABCR PO STA (05:06)
--- NOTE | 2023-05-04 05:52 | History & Physical Report ---
Date of Service May 04, 2023 Assessment & Plan (1) Palpitations: Plan: 28 year old female admitted for tachycardia and palpitations. Palpitations: -Patient currently 24 weeks , , no complications with past full term pregnancies. -Tachy up to the 150's in the ER. -WBC 15, CRP 1.24, procal negative. -CTA w/ bronchitis w/ pneumonitis. -S/p 2L NSS in the ER. -Difficult to ascertain whether tachycardia secondary to infection vs SVT from physiologic changes of affecting cardiac muscle stretching inducing aberrant pathway. -Given 2g CTX and 500mg Azithromycin in the ER. Will continue for now due to white count and elevated CRP. -Given 40meq KCl for K of 3.3. -Continue to trend electrolytes with AM renal function panel. -Trend heart rate on telemetry. F/E/N/GI: Regular diet DVT Prophylaxis: Patient ambulatory, no need for chemoprophylaxis at this time. Code: Full Dispo: Med/tele for cardiac monitoring. (2) and not yet delivered in second trimester: History of Present Illness Chief Complaint: Palpitations Primary Care Provider: Melody Fry DO Lizy is a 28 year old female coming in to the emergency department for palpitations and torrez to the head. Patient states that around 10PM this night while watching the electronic device for motion pictures she experienced a sudden sensation of a torrez to her head and palpitations. The head torrez sensation lasted several minutes but the heart palpitations she can still feel. She states that this was the first time this had happened to her and so she came to the emergency department to get checked out. She is about 24 weeks prengant at the current time. She did follow with [facility] in the past however is following with private fast brim pouncer [facility] now for a home . She states that her past 2 term pregnancies had no complications including no gestational hypertension. She says she had a URI 1-2 weeks ago when traveling with her and staying at a motel. Her kids had the URI too however her symptoms have mostly gone down. She had a little bit of nausea at the time of the incident but says no vomiting and appetite, food, and water intake have been adequate. Patient states she was also anxious when this occured and has been anxious. Feels baby moving, no bleeding or spotting, no contractions, no water breakage. In the ED she was found to be tachy to the 150's, BP, O2, and temp stayed WNL. WBC 15.52, K 3.3, liver enzymes unremarkable, CRP 1.24, procal <0.05, TSH WNL. U/A negative. CTA chest was ordered and was negative for any PE, findings concerning for bronchitis w/ pneumonitis which may be infectious or inflammatory, prominent mediastinal and axillary lymph nodes. CT Head negative. EKG with sinus tachycardia w/o other changes. Allergies Allergy/AdvReac Type Severity Reaction Status Date / Time lactose AdvReac Mild Gastrointestinal Verified 05/04/23 10:41 Upset Home Medications Medication Instructions Recorded Confirmed Type albuterol sulfate 90 mcg/actuation 90 mcg inhalation Q6H PRN 05/04/23 05/04/23 History aerosol inhaler Shortness Of Breath Or Wheezing aspirin 81 mg capsule 81 mg PO DAILY 05/04/23 05/04/23 History Past Med/Surg History Medical History Asthma allergy induced Encounter for pre-operative examination History of COVID-19 07/2020- mild cold symtoms, cough, runny nose, fatigue; 07/2021- mild cold symptoms, no hopitalizations or no current isssues Surgical History H/O dilation and curettage History of esophagogastroduodenoscopy (EGD) S/P colonoscopy Devine teeth extracted Family History Other FHx: cancer FHx: heart disease FHx: hypertension Social History Smoking Status: Never smoker Second Hand Exposure: No; Do You Dip or Chew Tobacco: No; Tobacco Cessation Education Requested by Patient: No Hx Alcohol Use: No Hx Substance Use: No Preferred Language: Amharic Communication Ability: Effective Correspondence Representative Required: No Beliefs That Will Affect Care: None marital status: Current Living Situation: Spouse Other Information That Helps Us Care for You: No Feels Safe at Home: Yes Assistive Devices: Glasses Review of Systems Review of Systems: As per HPI. Physical Exam Constitutional: WD/WN, vitals as above Respiratory: normal respiratory effort, lungs clear to auscultation Cardiovascular: Rate/Rhythm: regular rhythm and + tachycardic Heart Sounds: normal S1 and normal S2 No lower extremity swelling. Gastrointestinal (Abdomen): normal bowel sounds, soft, nontender, no hepatosplenomegaly Skin: no rashes, warm and dry Psychiatric: A+Ox3, euthymic affect Results & Data Results & Data Vital Signs (Past 12 Hours) Vital Signs Temp Pulse Pulse Resp BP BP Pulse Ox 05/04/23 04:37 115 H 05/04/23 00:15 157 H 05/04/23 04:00 125 H 122/80 97 05/04/23 02:00 123 H 20 131/85 98 05/04/23 01:00 115 H 20 129/90 99 05/04/23 00:00 120 H 18 131/81 97 05/03/23 23:57 125 H 20 98 05/03/23 23:52 120 H 20 127/95 97 05/03/23 23:35 36.6 C 128 H 18 141/84 H 99 O2 Del Method 05/04/23 04:37 05/04/23 00:15 05/04/23 04:00 05/04/23 02:00 05/04/23 01:00 05/04/23 00:00 05/03/23 23:57 Room Air 05/03/23 23:52 Room Air 05/03/23 23:35 Room Air Supervising Physician Co-Signing Physician Notes Patient seen and examined, chart reviewed, case discussed with Dr. Matamoros and I agree with the assessment and plan as above. In brief, patient is a 28yo female at 24 weeks presenting with near syncope and sustained sinus tachycardia. On exam she is resting comfortably, NAD, anxious Skin - no rash HEENT- MMM, No JVD Heart - +S1/S2, regular, no m/r/g Lungs - CTA Abd - gravid uterus, +BS, soft, NT/ND Ext - warm, well perfused Labs and images reviewed CTA with bronchitis and possible pneumonitis Assessment/Plan: -tachycardic with HR 150's in ER -Continue antibiotics - Ceftriaxone/Azithromycin -Continue IVF, electrolyte repletion -Remainder of plan as above Resident Activity Tracking Resident Involvement: Resident Care Provided Care Provided: Adult Hospital Medicine
--- NOTE | 2023-05-04 05:54 | CT Scan Report ---
Exam(s): CT HEAD Without Contrast EXAM: CT Head Without Intravenous Contrast CLINICAL HISTORY: Reason for exam: Tachycardia, headache, pre-syncope - 24 wks Preg. TECHNIQUE: Axial computed tomography images of the head/brain without intravenous contrast. CTDI is 39.03 mGy and DLP is 624.41 mGy-cm. Automated exposure control was utilized for the study. A dose lowering technique was utilized adhering to the principles of ALARA. COMPARISON: No relevant prior studies available. FINDINGS: Brain: Unremarkable. No hemorrhage. No significant white matter disease. No edema. Ventricles: Unremarkable. No ventriculomegaly. Bones/joints: Unremarkable. No acute fracture. Soft tissues: Unremarkable. Sinuses: Unremarkable as visualized. No acute sinusitis. Mastoid air cells: Unremarkable as visualized. No mastoid effusion. IMPRESSION: No evidence of acute intracranial pathology. Electronically signed by: Kaye Grace MD 05/04/23 05:53 AM
[2023-05-04 07:06] LABS: Adenovirus PCR Not Detected (NotDetected); Bordetella parapertussis PCR Not Detected (NotDetected); Bordetella pertussis PCR Not Detected (NotDetected); Chlamydia pneumoniae PCR Not Detected (NotDetected); Coronavirus 229E PCR Not Detected (NotDetected); Coronavirus CoV-2 (COVID19)PCR Not Detected (NotDetected); Coronavirus HKU1 PCR Not Detected (NotDetected); Coronavirus NL63 PCR Not Detected (NotDetected); Coronavirus OC43PCR Not Detected (NotDetected); Human Metapneumovirus PCR Not Detected (NotDetected); Influenza A PCR Not Detected (NotDetected); Influenza B PCR Not Detected (NotDetected); Mycoplasma pneumoniae PCR Not Detected (NotDetected); Parainfluenza Virus 1 PCR Not Detected (NotDetected); Parainfluenza Virus 2 PCR Not Detected (NotDetected); Parainfluenza Virus 3 PCR Not Detected (NotDetected); Parainfluenza Virus 4 PCR Not Detected (NotDetected); Respiratory Syncytial VirusPCR Not Detected (NotDetected)
[2023-05-04 07:23] LABS: Rhinovirus/Enterovirus PCR DETECTED (NotDetected)
--- NOTE | 2023-05-04 07:29 | Electrocardiogram Report ---
Test Reason : Blood Pressure : / mmHG Vent. Rate : 117 BPM Atrial Rate : 117 BPM P-R Int : 124 ms QRS Dur : 068 ms QT Int : 316 ms P-R-T Axes : 046 050 022 degrees QTc Int : 440 ms Sinus tachycardia Nonspecific ST abnormality When compared with ECG of 16-SEP-2019 19:30, No significant change was found Confirmed by Korey Smith ([id number]) on 05/04/2023 7:28:47 AM Referred By: REFERRED SELF Confirmed By:Korey Smith
--- NOTE | 2023-05-04 09:01 | XRay Report ---
XR chest 1V portable CLINICAL HISTORY: Tachycardia, pre-syncope COMPARISON STUDY: Chest CT September 16, 2019. Chest radiograph September 14, 2019. FINDINGS: Lung volumes are normal. Lungs are clear. There is no pneumothorax or pleural effusion. Car diac size is normal. Mediastinal contours are normal. There is no evidence for pulmonary edema. IMPRESSION: No acute cardiopulmonary findings. ACT 112: Negative or not required by law. Electronically signed by: Mikhail Nair M.D. 05/04/2023 9:00 AM
[2023-05-04] MEDS ORDERED: ONDANSETRON INJ 2 MG/ML 2 ML VIAL IV PRN (13:50)
--- NOTE | 2023-05-04 14:08 | Hospitalist Progress Note ---
Date of Service May 04, 2023 Assessment & Plan (1) Palpitations: Plan: (2) and not yet delivered in second trimester: Plan 28 year old female at 24 weeks gestation admitted for tachycardia, palpitations, near syncope. #Tachycardia: - at 24 weeks GA -HRmax 157 while in the ED, since decreased but still mildly tachycardic -Tachycardia likely secondary to acute infection with physiologic changes of - Continue to monitor via telemetry - s/p 2L in ED. continue to encourage PO fluid intake. #Pneumonitis -WBC 15.5, CRP 1.24, procal negative. -CTA chest significant for bronchitis w/ pneumonitis. -Respiratory panel positive for Rhinovirus -Continue Ceftriaxone and Azithromycin, pending result of blood cx # in Second Trimester: - Check heart tones Qshift F/E/N: Regular diet DVT Prophylaxis: Patient ambulatory, no need for chemoprophylaxis at this time. Admission and Anticipated Discharge Date Admission Date: May 04, 2023 Supervising Physician Co-Signing Physician Notes Resident Physician Supervision Note: I independently interviewed and examined the patient and verified the martinez history and physical, reviewed labs and image studies and agree with resident findings and care plan. Subjective 28 year old female at 24 weeks gestation admitted for tachycardia, palpitations, near syncope. Patient evaluated at bedside this morning, notes that she is better compared to last night but still feels flushed, noting that her face feels warm. States this is the first time something like this has happened. Denies chest pain, shortness of breath, N/V. States that she can feel the baby moving like normal. Patient also notes that she has had cold-like symptoms over the past 1-2 weeks, has ongoing runny nose but denies fever, sore throat. Denies changes in vision. Review of Systems Review of Systems: All systems reviewed & are unremarkable except as noted in HPI & below Physical Exam Constitutional: WD/WN, vitals as above Respiratory: normal respiratory effort, lungs clear to auscultation Cardiovascular: Rate/Rhythm: regular rhythm and + tachycardic Heart Sounds: no murmur Extremities: no edema Skin: no rashes, warm and dry Psychiatric: A+Ox3, euthymic affect Results & Data Results & Data Vital Signs (Past 12 Hours) Vital Signs Temp Pulse Pulse Resp BP BP Pulse Ox 05/04/23 13:58 36.8 C 99 H 18 117/78 97 05/04/23 13:27 95 H 20 123/75 96 05/04/23 12:40 118 H 20 123/74 96 05/04/23 11:00 106 H 19 116/74 94 05/04/23 10:00 99 H 18 116/69 96 05/04/23 09:00 111 H 19 110/73 96 05/04/23 08:00 114 H 14 116/76 96 05/04/23 07:00 112 H 14 121/78 98 05/04/23 09:00 116 H 20 117/73 99 05/04/23 08:40 114 H 05/04/23 07:19 121/78 96 05/04/23 05:00 124 H 19 120/83 95 05/04/23 04:37 115 H 05/04/23 04:00 125 H 122/80 97 O2 Del Method 05/04/23 13:58 Room Air 05/04/23 13:27 Room Air 05/04/23 12:40 Room Air 05/04/23 11:00 Room Air 05/04/23 10:00 Room Air 05/04/23 09:00 Room Air 05/04/23 08:00 Room Air 05/04/23 07:00 Room Air 05/04/23 09:00 Room Air 05/04/23 08:40 05/04/23 07:19 Room Air 05/04/23 05:00 05/04/23 04:37 05/04/23 04:00 Laboratory Results Abnormal lab results 05/04/23 05/04/23 05/04/23 Range/Units 00:30 00:30 05:50 WBC 15.52 H (4.8-10.8) K/ul RBC 4.00 L (4.20-5.40) M/uL Hct 36.3 L (37.0-47.0) % MPV 9.3 L (9.4-12.4) fL Neut # (Auto) 10.45 H (1.40-6.50) K/uL [place] # (Auto) 0.93 H (0.11-0.59) K/uL Immature Gran # (Auto) 0.29 H (0.01-0.20) K/uL Potassium 3.3 L (3.5-5.1) mmol/L Creatinine 0.41 L (0.6-1.2) mg/dl Glucose 127 H (70-99(Fasting)) mg/dl AST 12 L (13-39) U/L C-Reactive Protein 1.24 H (0-0.5) mg/dl Globulin 4.1 H (2.5-4.0) gm/dl Entero/Rhino (PCR) DETECTED A* (NotDetected) Diagnostic Findings Chest X-Ray 05/04/23 00:19 XR chest 1V portable CLINICAL HISTORY: Tachycardia, pre-syncope COMPARISON STUDY: Chest CT September 16, 2019. Chest radiograph September 14, 2019. FINDINGS: Lung volumes are normal. Lungs are clear. There is no pneumothorax or pleural effusion. Cardiac size is normal. Mediastinal contours are normal. There is no evidence for pulmonary edema. IMPRESSION: No acute cardiopulmonary findings. ACT 112: Negative or not required by law. Electronically signed by: Mikhail Nair M.D. 05/04/2023 9:00 AM Chest CTA 05/04/23 02:06 Exam(s): CTA CHEST IV Amt: 114 cc's optiray 320 EXAM: CT Angiography Chest With Intravenous Contrast CLINICAL HISTORY: Reason for exam: PE - 24 weeks Preg. TECHNIQUE: Axial computed tomographic angiography images of the chest with intravenous contrast. CTDI is 31.35 mGy and DLP is 525.21 mGy-cm. Automated exposure control was utilized for the study. A dose lowering technique was utilized adhering to the principles of ALARA. MIP reconstructed images were created and reviewed. COMPARISON: No relevant prior studies available. FINDINGS: Pulmonary arteries: Unremarkable. No pulmonary embolism. Aorta: No acute findings. No thoracic aortic aneurysm. Lungs: Mild to moderate peribronchial thickening of the central and lower lobe bronchi. Pneumonitis in the lower lobes. No mass. No consolidation. Pleural space: Unremarkable. No significant effusion. No pneumothorax. Heart: Unremarkable. No cardiomegaly. No significant pericardial effusion. No evidence of RV dysfunction. Bones/joints: No acute fracture. No dislocation. Soft tissues: Unremarkable. Lymph nodes: Prominent mediastinal and axillary lymph nodes. IMPRESSION: No evidence of pulmonary artery. Findings concerning for bronchitis with pneumonitis, which may be infectious or inflammatory etiologies. Prominent mediastinal and axillary lymph nodes. Electronically signed by: Kaye Grace MD 05/04/23 04:[address] 05/04/23 02:06 Exam(s): CT HEAD Without Contrast EXAM: CT Head Without Intravenous Contrast CLINICAL HISTORY: Reason for exam: Tachycardia, headache, pre-syncope - 24 wks Preg. TECHNIQUE: Axial computed tomography images of the head/brain without intravenous contrast. CTDI is 39.03 mGy and DLP is 624.41 mGy-cm. Automated exposure control was utilized for the study. A dose lowering technique was utilized adhering to the principles of ALARA. COMPARISON: No relevant prior studies available. FINDINGS: Brain: Unremarkable. No hemorrhage. No significant white matter disease. No edema. Ventricles: Unremarkable. No ventriculomegaly. Bones/joints: Unremarkable. No acute fracture. Soft tissues: Unremarkable. Sinuses: Unremarkable as visualized. No acute sinusitis. Mastoid air cells: Unremarkable as visualized. No mastoid effusion. IMPRESSION: No evidence of acute intracranial pathology. Electronically signed by: Kaye Grace MD 05/04/23 05:53 AM Resident Activity Tracking Resident Involvement: Resident Care Provided Care Provided: Adult [facility]
--- NOTE | 2023-05-04 19:52 | Billing Data ---
Date of Service May 04, 2023 Coding Level of Care Code 74651 INT INP/OBS CARE
[2023-05-04] MEDS ORDERED: ASPIRIN 81 MG ECTAB PO SCH (21:00)
[2023-05-05 04:58] LABS: Albumin Level 3.5 gm/dl (3.4-5.0); Anion Gap 5 (3-11); BUN Creatinine Ratio 21.6 (10-20); Blood Urea Nitrogen 8 mg/dl (6-23); C Reactive Protein 0.92 mg/dl (0-0.5); Calcium 8.6 mg/dl (8.6-10.3); Carbon Dioxide 23 mmol/L (21-32); Chloride 105 mmol/L (98-107); Creatinine Clr Calc Pharmacy 213.7 ml/min; Est GFR (African American) > 150.0 ml/min; Est GFR (Non-African American) 146.5 ml/min; Glucose 89 mg/dl (70-99(Fasting)); Phosphorus 3.3 mg/dl (2.5-4.9); Potassium 4.2 mmol/L (3.5-5.1); Sodium 133 mmol/L (136-145)
[2023-05-05 05:12] LABS: Basophils # (auto) 0.07 K/uL (0.00-0.20); Basophils % (auto) 0.5 %; Eosinophils # (auto) 0.46 K/uL (0.00-0.50); Eosinophils % (auto) 3.2 %; Hematocrit (blood only) 32.3 % (37.0-47.0); Hemoglobin 10.9 g/dl (12.0-16.0); Immature Granulocytes # (auto) 0.32 K/uL (0.01-0.20); Immature Granulocytes % (auto) 2.2 %; Lymphocytes # (auto) 2.59 K/uL (1.20-3.40); Lymphocytes % (auto) 17.9 %; Mean Corpuscular Hemoglobin 30.9 pg (25.0-34.0); Mean Corpuscular Hgb Conc 33.7 g/dL (32.0-36.0); Mean Corpuscular Volume 91.5 fL (80.0-100.0); Mean Platelet Volume 9.4 fL (9.4-12.4); Monocytes # (auto) 1.04 K/uL (0.11-0.59); Monocytes % (auto) 7.2 %; Neutrophils # (auto) 9.97 K/uL (1.40-6.50); Platelet Count 272 K/uL (130-400); RDW Coefficient of Variation 13.2 % (11.5-14.5); Red Blood Count 3.53 M/uL (4.20-5.40); White Blood Count 14.45 K/ul (4.8-10.8)
[2023-05-05] MEDS ORDERED: cefTRIAXone SODIUM 1,000 MG in DEXTROSE 5 % MINI-B 50 ML IV SCH (06:00)
--- NOTE | 2023-05-05 07:04 | Hospitalist Progress Note ---
Date of Service May 05, 2023 Assessment & Plan (1) Palpitations: Plan: (2) and not yet delivered in second trimester: Plan 28 year old female at 24 weeks gestation admitted for tachycardia, palpitations, near syncope. #Tachycardia: - at 24 weeks GA -HRmax 157 while in the ED, since decreased but still mildly tachycardic -Tachycardia likely secondary to acute infection with physiologic changes of - Continue to monitor via telemetry - s/p 2L in ED. continue to encourage PO fluid intake. #Pneumonitis -WBC 15.5, CRP 1.24, procal negative. -CTA chest significant for bronchitis w/ pneumonitis. -Respiratory panel positive for Rhinovirus -Continue Ceftriaxone and Azithromycin, pending result of blood cx # in Second Trimester: - Check heart tones Qshift F/E/N: Regular diet DVT Prophylaxis: Patient ambulatory, no need for chemoprophylaxis at this time. Admission and Anticipated Discharge Date Admission Date: May 04, 2023 Subjective 28 year old female at 24 weeks gestation admitted for tachycardia, palpitations, near syncope. Patient evaluated at bedside this morning, notes that she is better compared to last night but still feels flushed, noting that her face feels warm. States this is the first time something like this has happened. Denies chest pain, shortness of breath, N/V. States that she can feel the baby moving like normal. Patient also notes that she has had cold-like symptoms over the past 1-2 weeks, has ongoing runny nose but denies fever, sore throat. Denies changes in vision. Physical Exam Constitutional: WD/WN, vitals as above Respiratory: normal respiratory effort, lungs clear to auscultation Cardiovascular: Rate/Rhythm: regular rhythm and + tachycardic Heart Sounds: no murmur Extremities: no edema Skin: no rashes, warm and dry Psychiatric: A+Ox3, euthymic affect Results & Data Results & Data Vital Signs (Past 12 Hours) Vital Signs Temp Pulse Pulse Resp BP BP Pulse Ox 05/05/23 04:58 103 H 05/05/23 03:26 36.8 C 96 H 18 99/63 L 97 05/04/23 23:53 36.7 C 95 H 18 90/50 L 96 05/04/23 22:00 105 H 05/04/23 21:14 05/04/23 20:13 36.6 C 99 H 18 106/73 98 O2 Del Method 05/05/23 04:58 05/05/23 03:26 Room Air 05/04/23 23:53 Room Air 05/04/23 22:00 05/04/23 21:14 Room Air 05/04/23 20:13 Room Air
[2023-05-05] MEDS ORDERED: AZITHROMYCIN 250 MG TAB PO SCH (09:00)
--- NOTE | 2023-05-05 13:07 | Discharge Summary ---
Date of Service May 05, 2023 Admission HPI Per Admitting Provider Lizy is a 28 year old female coming in to the emergency department for palpitations and torrez to the head. Patient states that around 10PM this night while watching the electronic device for motion pictures she experienced a sudden sensation of a torrez to her head and palpitations. The head torrez sensation lasted several minutes but the heart palpitations she can still feel. She states that this was the first time this had happened to her and so she came to the emergency department to get checked out. She is about 24 weeks prengant at the current time. 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 She states that her past 2 term pregnancies had no complications including no gestational hypertension. She says she had a URI 1-2 weeks ago when traveling with her and staying at a motel. Her kids had the URI too however her symptoms have mostly gone down. She had a little bit of nausea at the time of the incident but says no vomiting and appetite, food, and water intake have been adequate. Patient states she was also anxious when this occured and has been anxious. Feels baby moving, no bleeding or spotting, no contractions, no water breakage. In the ED she was found to be tachy to the 150's, BP, O2, and temp stayed WNL. WBC 15.52, K 3.3, liver enzymes unremarkable, CRP 1.24, procal <0.05, TSH WNL. U/A negative. CTA chest was ordered and was negative for any PE, findings concerning for bronchitis w/ pneumonitis which may be infectious or inflammatory, prominent mediastinal and axillary lymph nodes. CT Head negative. EKG with sinus tachycardia w/o other changes. Admission Exam Per Admitting Provider Physical Exam Constitutional: WD/WN, vitals as above Respiratory: normal respiratory effort, lungs clear to auscultation Cardiovascular: Rate/Rhythm: regular rhythm and + tachycardic Heart Sounds: normal S1 and normal S2 No lower extremity swelling. Gastrointestinal (Abdomen): normal bowel sounds, soft, nontender, no hepatosplenomegaly Skin: no rashes, warm and dry Psychiatric: A+Ox3, euthymic affect Principal Diagnosis URI Discharge Exam Constitutional WD/WN, vitals as above Neck trachea midline, no thyromegaly Respiratory normal respiratory effort, lungs clear to auscultation Cardiovascular RRR, no murmur, no edema Skin no rashes, warm and dry Psychiatric A+Ox3, euthymic affect Discharge Data Allergies Allergy/AdvReac Type Severity Reaction Status Date / Time lactose AdvReac Mild Gastrointestinal Verified 05/04/23 10:41 Upset Consultations 05/04/23 05:07 ED Decision to Admit Stat Ordered Studies 05/04/23 02:06 CT angio chest PE protocol Stat CT head/brain wo con Stat Hospital Course (1) Palpitations: (2) and not yet delivered in second trimester: Plan 28 year old female at 24 weeks gestation admitted for tachycardia, palpitations, near syncope. #Tachycardia: - at 24 weeks GA -HRmax 157 while in the ED, decreased substantially with fluid bolus, running in the high 90s at time of discharge -Per telemetry, patient was in sinus tach, no arrhythmias noted -Tachycardia was likely secondary to acute infection with physiologic changes of #Pneumonitis -Initial WBC 15.5, CRP 1.24, procal negative. -Morning of discharge: WBC 14.5, CRP 0.92 -CTA chest was significant for bronchitis w/ pneumonitis, negative for PE -Respiratory panel was positive for Rhinovirus -Blood cultures at 24 hours were negative -IV ceftriaxone and azithromycin were initiated but d/malina on discharge since no concern of bacterial or atypical organism infection. -Discharged with recommendation for ongoing supportive care # in Second Trimester: - Checked heart tones Qshift, were WNL Total Time Total Time Spent Total Time Spent (In Minutes): see attending attestation Discharge Plan Discharge Items Patient Disposition: Home - Self-Care Reason For Visit: PALPITATIONS Discharge Diagnosis: URI Condition on Discharge: Good Activity: Resume your previous activity Non-emergency contact: Primary Care Provider Call non-emergency contact if: your symptoms worsen Follow-up/Referrals: Melody Fry, [Primary Care Provider] - (PLEASE CALL YOUR PRIMARY CARE PROVIDER TO SCHEDULE A FOLLOW-UP HOSPITAL DISCHARGE APPOINTMENT WITHIN 7-10 DAYS) Diet: Regular and Regular OB Addtl Attending Provider Instructions: You were admitted to the hospital due to elevated heart rate. You were treated given IV fluids. You were also found to have an upper respiratory infection and tested positive for Rhinovirus. Because this is a viral infection, there is no need to continue antibiotics. A discharge summary will be sent to your primary care physician to ensure continuity of care. Please bring this discharge summary with you to your next office appointment so that your provider can review it at that time. Medications: Your medication list has been reviewed and reconciled upon discharge to ensure accuracy and continuity of care. An updated list of all your medications is included with your hospital discharge paperwork. Please review this list closely and make note of any changes to your medications. No medication changes were made, please continue to take medications as directed previously. Follow up appointments: - Make a follow up appointment with your PCP/OB within the next week. It is very important that you follow up with them shortly after discharge from the hospital. - Keep all of your follow up appointments as already scheduled. If you cannot make an appointment, notify your provider. CONTACT YOUR PRIMARY CARE PROVIDER if you experience any of the following: - Significant, unexplained increase in heart rate - Difficulty following your treatment plan - Difficulty taking any of your medications CALL 911 OR GO TO THE EMERGENCY DEPARTMENT if you experience any of the following: - Sudden, severe abdominal pain or nausea/vomiting - Severe chest pain or chest pain that radiates to your jaw or arm - Sudden, severe shortness of breath or difficulty breathing Pending Studies at Discharge: No Stand-Alone Forms: My [facility], Smoking Cessation Medications and DC Order Prescriptions: Continued albuterol sulfate 90 mcg/actuation HFA aerosol inhaler 90 mcg INHALATION Q6H PRN (Reason: Shortness Of Breath Or Wheezing) Rx Instructions: Patient states she uses this as a emergency inhaler aspirin 81 mg Capsule 81 mg PO DAILY Discharge Orders: Discharge Order (Routine); Ordered 05/05/23 Ordered By: Esteban Wiggins Admission Data Admit Date/Time: 05/04/23 06:08 Attending Provider: Alix Mason Admit Provider: Asim Matamoros Primary Care Provider: Melody Fry Other Providers: Flor Blanco Other Interventions: Discharge Summary Assessment (RN) Last Done: 05/05/23 12:50 Supervising Physician Co-Signing Physician Notes Resident Physician Supervision Note: I independently interviewed and examined the patient and verified the martinez history and physical, reviewed labs and image studies and agree with resident findings and care plan. Resident Activity Tracking Resident Involvement: Resident Care Provided Care Provided: Adult Hospital Medicine
== END 2023-05-05 13:14 | disposition home or self-care (01) | DRG 833 ==
LOC: ED 23:32 → 2W 05-04 06:08